=== PATIENT | male | born 1970 | race Caucasian/White ===

== ENCOUNTER 2024-07-21 10:44 | Observation (INO) | payer BC ==
--- OUTSIDE RECORDS SUMMARY | 2024-07-21 10:49 | XMS REPORT | Continuity of Care Document ---
Author Name Unknown Address [address] [facility] [address] [place] [address] [facility] [place] Address [address] [facility] [address] [place] [address] Care Team Providers Care Network Analyst Name Role Phone Axel Boudreaux Attending Clinician Unavailable Ayana Blackmon Attending Clinician Unavailable Bethany Attending Clinician Unavailable MIKAYLA Attending Clinician Unavailable Maggy Damon Attending Clinician [phone] Minerva García Attending Clinician [phone] LINDA CHAPA Attending Clinician Unavailable Michaela_Nelson Admitting Clinician Unavailable MIKAYLA Admitting Clinician Unavailable LINDA CHAPA Admitting Clinician Unavailable Payers Payer Name Policy Type Policy Number Effective Date Expirati on Date Source [place] [id number] 2016 00:00:00 [facility] [place] [id number] 2016 00:00:00 Problems Condition Name Condition Details Condition Category Status Onset Date Resolution Date Last Treatment Date Treating Clinician Comments Source Type 2 diabetes mellitus Type 2 Diabetes Mellitus Problem Active 12-17 00:00: 00 [facility] Obesity Obesity Problem Active 12-17 00:00: 00 [facility] Failure to lose weight Failure to Lose Weight Problem Active 12-05 00:00: 00 [facility] Pain of left elbow joint Pain of Left Elbow Joint Problem Active 12-05 00:00: 00 [facility] Hyperlipid emia Hyperlipid emia Problem Active 2020-03 00:00: 00 [facility] Gout Gout Problem Active 2020-03 00:00: 00 [facility] Essential hypertensi on Essential Hypertensi on Problem Active 2020-03 00:00: 00 [facility] [id number] S/P total left hip arthroplas ty Problem [facility] [id number] Mixed hyperlipid emia Problem Active [facility] [id number] Morbidly obese Problem Active [facility] [id number] Chronic gout of multiple sites, unspecifie d cause Problem Active [facility] [id number] Primary osteoarthr itis of left hip Problem [facility] Localized, primary osteoarthr itis of the pelvic region and thigh Unilateral primary osteoarthr itis, left hip Problem [facility] Social History Social Habit Start Date Stop Date Quantity Comments Source History of Tobacco Use [facility] Sex Assigned At [facility] Smoking Status Start Date Stop Date Source Never Smoker [facility] Medications Ordered Medication Name Filled Medication Name Start Date Stop Date Current Medication? Ordering Clinician Indication Dosage Frequency Signature (SIG) Comments Components Source Fluticasone Propionate 50 MCG/ACT Fluticasone Propionate 50 MCG/ACT No 1{spray _in_eac h_nostr il} QD Fluticason e Propionate 50 MCG/ACT Lisinopril- hydroCHLORO thiazide 10-12.5 MG Lisinopril- hydroCHLORO thiazide 10-12.5 MG No 1{table t} QD Lisinopril -hydroCHLO ROthiazide 10-12.5 MG Indomethaci n 50 MG Indomethaci n 50 MG No Indomethac in 50 MG Febuxostat 80 MG Febuxostat 80 MG No Febuxostat 80 MG Rosuvastati n Calcium 5 MG Rosuvastati n Calcium 5 MG No 1{table t} QD Rosuvastat in Calcium 5 MG allopurinol allopurinol No al lopurino l [facility] allopurinol 300 mg tablet Take 1 tablet every day by oral route for 30 days. allopurinol 300 mg tablet Take 1 tablet every day by oral route for 30 days. No 1 Q1D allopurino l 300 mg tablet Take 1 tablet every day by oral route for [address] [facility] colchicine 0.6 mg tablet Take 1 tablet every day by oral route as needed. colchicine 0.6 mg tablet Take 1 tablet every day by oral route as needed. No 1 Q1D colchicine 0.6 mg tablet Take 1 tablet every day by oral route as needed. [facility] diclofenac sodium 75 mg tablet,irwin yed release Take 1 tablet twice a day by oral route as needed. diclofenac sodium 75 mg tablet,irwin yed release Take 1 tablet twice a day by oral route as needed. No 1 BID diclofenac sodium 75 mg tablet,del ayed release Take 1 tablet twice a day by oral route as needed. [facility] fenofibrate nanocrystal lized 145 mg tablet Take 1 tablet every day by oral route for 30 days. fenofibrate nanocrystal lized 145 mg tablet Take 1 tablet every day by oral route for 30 days. No 1 Q1D fenofibrat e nanocrysta llized 145 mg tablet Take 1 tablet every day by oral route for [address] [facility] indomethaci n 50 mg capsule Take 1 capsule 3 times a day by oral route. indomethaci n 50 mg capsule Take 1 capsule 3 times a day by oral route. No 1capsul e(s) TID indomethac in 50 mg capsule Take 1 capsule 3 times a day by oral route. [facility] lisinopril 10 mg-hydrochl orothiazide 12.5 mg tablet Take 1 tablet every day by oral route for 30 days. lisinopril 10 mg-hydrochl orothiazide 12.5 mg tablet Take 1 tablet every day by oral route for 30 days. No 1 Q1D lisinopril 10 mg-hydroch lorothiazi de 12.5 mg tablet Take 1 tablet every day by oral route for [address] [facility] lisinopril 20 mg tablet Take 1 tablet every day by oral route. lisinopril 20 mg tablet Take 1 tablet every day by oral route. No 1 Q1D lisinopril 20 mg tablet Take 1 tablet every day by oral route. [facility] pravastatin 20 mg tablet Take 1 tablet every day by oral route. pravastatin 20 mg tablet Take 1 tablet every day by oral route. No 1 Q1D pravastati n 20 mg tablet Take 1 tablet every day by oral route. [facility] allopurinol 300 mg tablet Take 1 tablet twice a day by oral route for 90 days. allopurinol 300 mg tablet Take 1 tablet twice a day by oral route for 90 days. No 1 BID allopurino l 300 mg tablet Take 1 tablet twice a day by oral route for [address] [facility] colchicine 0.6 mg tablet 2 TABLETS ON DAY 1, THEN 1 TABLET DAILY colchicine 0.6 mg tablet 2 TABLETS ON DAY 1, THEN 1 TABLET DAILY No colchicine 0.6 mg tablet 2 TABLETS ON DAY 1, THEN [address] [facility] fenofibrate nanocrystal lized 145 mg tablet TAKE 1 TABLET BY MOUTH ONCE DAILY FOR 90 DAYS fenofibrate nanocrystal lized 145 mg tablet TAKE 1 TABLET BY MOUTH ONCE DAILY FOR 90 DAYS No fenofibrat e nanocrysta llized 145 mg tablet TAKE 1 TABLET BY MOUTH ONCE DAILY FOR [address] [facility] indomethaci n 50 mg capsule Take 1 capsule 3 times a day by oral route as needed. indomethaci n 50 mg capsule Take 1 capsule 3 times a day by oral route as needed. No 1capsul e(s) TID indomethac in 50 mg capsule Take 1 capsule 3 times a day by oral route as needed. [facility] lisinopril 10 mg-hydrochl orothiazide 12.5 mg tablet TAKE 1 TABLET BY MOUTH ONCE DAILY FOR 90 DAYS lisinopril 10 mg-hydrochl orothiazide 12.5 mg tablet TAKE 1 TABLET BY MOUTH ONCE DAILY FOR 90 DAYS No lisinopril 10 mg-hydroch lorothiazi de 12.5 mg tablet TAKE 1 TABLET BY MOUTH ONCE DAILY FOR [address] [facility] allopurinol allopurinol No al lopurino l [facility] allopurinol 300 mg tablet Take 1 tablet every day by oral route for 30 days. allopurinol 300 mg tablet Take 1 tablet every day by oral route for 30 days. No 1 Q1D allopurino l 300 mg tablet Take 1 tablet every day by oral route for [address] [facility] colchicine 0.6 mg tablet Take 1 tablet every day by oral route as needed. colchicine 0.6 mg tablet Take 1 tablet every day by oral route as needed. No 1 Q1D colchicine 0.6 mg tablet Take 1 tablet every day by oral route as needed. [facility] diclofenac sodium 75 mg tablet,irwin yed release Take 1 tablet twice a day by oral route as needed. diclofenac sodium 75 mg tablet,irwin yed release Take 1 tablet twice a day by oral route as needed. No 1 BID diclofenac sodium 75 mg tablet,del ayed release Take 1 tablet twice a day by oral route as needed. [facility] fenofibrate nanocrystal lized 145 mg tablet Take 1 tablet every day by oral route for 30 days. fenofibrate nanocrystal lized 145 mg tablet Take 1 tablet every day by oral route for 30 days. No 1 Q1D fenofibrat e nanocrysta llized 145 mg tablet Take 1 tablet every day by oral route for [address] [facility] indomethaci n 50 mg capsule Take 1 capsule 3 times a day by oral route. indomethaci n 50 mg capsule Take 1 capsule 3 times a day by oral route. No 1capsul e(s) TID indomethac in 50 mg capsule Take 1 capsule 3 times a day by oral route. [facility] lisinopril 10 mg-hydrochl orothiazide 12.5 mg tablet Take 1 tablet every day by oral route for 30 days. lisinopril 10 mg-hydrochl orothiazide 12.5 mg tablet Take 1 tablet every day by oral route for 30 days. No 1 Q1D lisinopril 10 mg-hydroch lorothiazi de 12.5 mg tablet Take 1 tablet every day by oral route for [address] [facility] lisinopril 20 mg tablet Take 1 tablet every day by oral route. lisinopril 20 mg tablet Take 1 tablet every day by oral route. No 1 Q1D lisinopril 20 mg tablet Take 1 tablet every day by oral route. [facility] pravastatin 20 mg tablet Take 1 tablet every day by oral route. pravastatin 20 mg tablet Take 1 tablet every day by oral route. No 1 Q1D pravastati n 20 mg tablet Take 1 tablet every day by oral route. [facility] Vital Signs Vital Name Observation Time Observation Value Comments S denisse height 2023-10-22 13:00:00 72 [in_i] Commo n [facility] weight 2023-10-22 13:00:00 304 [lb_av] Comm on [facility] temperature 2023-10-22 13:00:00 98.1 [degF] Com [facility] bmi 2023-10-22 13:00:00 41.23 kg/m2 Comm on [facility] blood pressure systolic 2023-10-22 13:00:00 130 mm[Hg] [facility] blood pressure diastolic 2023-10-22 13:00:00 62 mm[Hg] Common [facility] height 2023-10-09 08:15:00 72 [in_i] Commo n [facility] weight 2023-10-09 08:15:00 304.3 [lb_av] Co mmon [facility] temperature 2023-10-09 08:15:00 97.8 [degF] Com [facility] bmi 2023-10-09 08:15:00 41.27 kg/m2 Comm on [facility] blood pressure systolic 2023-10-09 08:15:00 134 mm[Hg] Common [facility] blood pressure diastolic 2023-10-09 08:15:00 60 mm[Hg] Common Spiri t [facility] height 2023-09-07 08:00:00 72 [in_i] Commo n [facility] weight 2023-09-07 08:00:00 304.1 [lb_av] Co mmon [facility] temperature 2023-09-07 08:00:00 97.5 [degF] Com mon [facility] bmi 2023-09-07 08:00:00 41.24 kg/m2 Comm on [facility] blood pressure systolic 2023-09-07 08:00:00 130 mm[Hg] Common [facility] blood pressure diastolic 2023-09-07 08:00:00 78 mm[Hg] Common [facility] temperature 2023-07-23 08:00:00 98.0 [degF] Com mon [facility] bmi 2023-07-23 08:00:00 41.23 kg/m2 Comm on [facility] blood pressure systolic 2023-07-23 08:00:00 124 mm[Hg] Common [facility] blood pressure diastolic 2023-07-23 08:00:00 78 mm[Hg] Common [facility] height 2023-07-23 08:00:00 72 [in_i] Commo n [facility] weight 2023-07-23 08:00:00 304 [lb_av] Comm on [facility] height 2023-06-22 13:30:00 72 [in_i] Commo n [facility] weight 2023-06-22 13:30:00 304 [lb_av] Comm on [facility] bmi 2023-06-22 13:30:00 41.23 kg/m2 Comm on [facility] blood pressure systolic 2023-06-22 13:30:00 129 mm[Hg] [facility] blood pressure diastolic 2023-06-22 13:30:00 74 mm[Hg] [facility] height 2023-06-17 08:30:00 72 [in_i] Commo n [facility] weight 2023-06-17 08:30:00 304 [lb_av] Comm on [facility] temperature 2023-06-17 08:30:00 98.5 [degF] Com mon [facility] bmi 2023-06-17 08:30:00 41.23 kg/m2 Comm on [facility] blood pressure systolic 2023-06-17 08:30:00 126 mm[Hg] Common [facility] blood pressure diastolic 2023-06-17 08:30:00 80 mm[Hg] [facility] BP Diastolic 2021-12-17 00:00:00 68 mm[Hg] [facility] Height 2021-12-17 00:00:00 72 [in_i] [facility] BP Systolic 2021-12-17 00:00:00 137 mm[Hg] [facility] Body Weight 2021-12-17 00:00:00 5283.2 [oz_av] [facility] BP Diastolic 2021-12-05 00:00:00 74 mm[Hg] [facility] Height 2021-12-05 00:00:00 72 [in_i] [facility] BMI (Body Mass Index) 2021-12-05 00:00:00 45.7 kg/m2 [facility] BP Systolic 2021-12-05 00:00:00 161 mm[Hg] [facility] Body Weight 2021-12-05 00:00:00 5385.6 [oz_av] [facility] BP Diastolic 2021-05-28 00:00:00 64 mm[Hg] [facility] Height 2021-05-28 00:00:00 72 [in_i] [facility] BMI (Body Mass Index) 2021-05-28 00:00:00 45.1 kg/m2 [facility] BP Systolic 2021-05-28 00:00:00 143 mm[Hg] [facility] Body Weight 2021-05-28 00:00:00 5321.6 [oz_av] [facility] Height 2021-02-22 00:00:00 72 [in_i] [facility] BP Diastolic 2021-01-21 00:00:00 81 mm[Hg] [facility] Height 2021-01-21 00:00:00 72 [in_i] [facility] BMI (Body Mass Index) 2021-01-21 00:00:00 45.2 kg/m2 [facility] BP Systolic 2021-01-21 00:00:00 178 mm[Hg] [facility] Body Weight 2021-01-21 00:00:00 5330 [oz_av] [facility] height 2020-10-30 15:00:00 60.5 [in_i] Comm on [facility] weight 2020-10-30 15:00:00 328.8 [lb_av] Co mmon [facility] temperature 2020-10-30 15:00:00 97.7 [degF] Com mon [facility] bmi 2020-10-30 15:00:00 63.15 kg/m2 Comm on [facility] oximetry 2020-10-30 15:00:00 96 % Commo n [facility] respiratory rate 2020-10-30 15:00:00 18 /min Common [facility] blood pressure systolic 2020-10-30 15:00:00 130 mm[Hg] Common [facility] blood pressure diastolic 2020-10-30 15:00:00 72 mm[Hg] Common [facility] height 2020-10-12 14:00:00 60.5 [in_i] Comm on [facility] weight 2020-10-12 14:00:00 337 [lb_av] Comm on [facility] temperature 2020-10-12 14:00:00 97.8 [degF] Com mon [facility] bmi 2020-10-12 14:00:00 64.73 kg/m2 Comm on [facility] oximetry 2020-10-12 14:00:00 98 % Commo n [facility] respiratory rate 2020-10-12 14:00:00 16 /min Common [facility] blood pressure systolic 2020-10-12 14:00:00 163 mm[Hg] Common [facility] blood pressure diastolic 2020-10-12 14:00:00 78 mm[Hg] [facility] Procedures Procedure Date / Time Performed Performing Clinicia n Source Procedure on Foot 2016-03-23 00:00:00 [facility] Procedure on Shoulder [facility] Plan of Care Planned Activity Planned Date Details Comments Source Diagnostic Test Pending 2021-05-28 00:00:00 CBC w/ auto diff [code = CBC w/ auto diff] [facility] Diagnostic Test Pending 2021-05-28 00:00:00 thyroid peroxidase (tpo) Ab, serum [code = thyroid peroxidase (tpo) Ab, serum] [facility] Diagnostic Test Pending 2021-05-28 00:00:00 CMP, serum or plasma [code = CMP, serum or plasma] [facility] Diagnostic Test Pending 2021-05-28 00:00:00 TSH + free T4, serum [code = TSH + free T4, serum] [facility] Diagnostic Test Pending 2021-05-28 00:00:00 vitamin D, 25-hydroxy, total, serum [code = vitamin D, 25-hydroxy, total, serum] [facility] Diagnostic Test Pending 2021-05-28 00:00:00 testosterone, total, serum [code = testosterone, total, serum] [facility] Diagnostic Test Pending 2021-05-28 00:00:00 lipids, total, serum [code = lipids, total, serum] [facility] Diagnostic Test Pending 2021-05-28 00:00:00 insulin, serum [code = insulin, serum] [facility] Instructions [facility] Encounters Start Date/Time End Date/Time Encounter Type Admission Type Attending [facility] Care Facility Care Department Encounter ID Source 2023-10-13 07:02:00 Outpatient STLMLC STL[facility]C [id number] [facility] 2023-10-05 15:11:00 Outpatient STLMLC STLMLC [id number] [facility] 2023-09-22 13:04:00 Outpatient STLMLC STLMLC [id number] [facility] 2023-09-08 08:17:00 Outpatient STLMLC STLMLC [id number] [facility] 2023-08-10 09:15:00 Outpatient STLMLC STLMLC [id number] [facility] 2023-06-23 11:35:00 Outpatient STLMLC STLMLC [id number] [facility] 2023-06-17 16:03:00 Outpatient STLMLC STLMLC [id number] [facility] 2021-04-17 13:40:56 Outpatient STLMLC STLMLC [id number] [facility] 2021-04-17 13:36:45 Outpatient Janusz Axel STLMLC STLMLC [id number] [facility] 2021-04-17 13:29:54 Outpatient Blackmon, Imernee STLMLC STLMLC [id number] [facility] 2023-10-22 00:00:00 2023-10-22 00:00:00 (PO) Post Op STLMLC STLMLC [id number] [facility] 2023-10-09 00:00:00 2023-10-09 00:00:00 (PO) Post Op STLMLC STLMLC [id number] [facility] 2023-09-07 00:00:00 2023-09-07 00:00:00 (PO) Post Op STLMLC STLMLC [id number] [facility] 2023-08-26 00:00:00 2023-08-26 00:00:00 (TEL) STLMLC STLMLC [id number] [facility] 2023-08-19 00:00:00 2023-08-19 00:00:00 (TEL) STLMLC STLMLC [id number] [facility] 2023-08-10 00:00:00 2023-08-10 00:00:00 (TEL) STLMLC STLMLC [id number] [facility] 2023-08-07 00:00:00 2023-08-07 00:00:00 (TEL) STLMLC STLMLC [id number] [facility] 2023-08-07 00:00:00 2023-08-07 00:00:00 (TEL) STLMLC STLMLC [id number] [facility] 2023-07-23 00:00:00 2023-07-23 00:00:00 (TEL) STLMLC STLMLC [id number] [facility] 2023-07-23 00:00:00 2023-07-23 00:00:00 (F/U) Follow Up Visit STLMLC STLMLC [id number] [facility] 2023-07-16 00:00:00 2023-07-16 00:00:00 (TEL) STLMLC STLMLC [id number] [facility] 2023-06-22 00:00:00 2023-06-22 00:00:00 (F/U) Follow Up Visit STLMLC STLMLC [id number] [facility] 2023-06-17 00:00:00 2023-06-17 00:00:00 OFFICE VISIT NEW PT LEVEL 4 STLMLC STLMLC [id number] [facility] 2022-06-10 00:00:00 2022-06-10 00:00:00 Outpatient L[facility] [id number] [facility] 2022-05-06 00:00:00 2022-05-06 00:00:00 Outpatient L[facility] [id number] [facility] 2022-04-02 00:00:00 2022-04-02 00:00:00 Outpatient [facility] [id number] [facility] 2021-12-17 00:00:00 2021-12-17 00:00:00 Outpatient [facility] [id number] [facility] 2021-12-17 00:00:00 2021-12-17 00:00:00 Maggy Damon APRN, MSN, [facility]-: [address] [place] [address], [address] [address] , Ph. [facility] [id number] [facility] 2021-12-12 00:00:00 2021-12-12 00:00:00 Outpatient L_[facility]ena [facility] [id number] [facility] 2021-12-05 00:00:00 2021-12-05 00:00:00 Outpatient [facility] [id number] [facility] 2021-12-05 00:00:00 2021-12-05 00:00:00 Outpatient DamonMaggy [facility] [id number] 2021-12-05 00:00:00 2021-12-05 00:00:00 Maggy Damon APRN, MSN, [facility]-: [address] [place] [address], [address] [address] , Ph. [facility] [id number] [facility] 2021-11-24 00:00:00 2021-11-24 00:00:00 Outpatient [facility] [id number] [facility] 2021-08-29 02:35:00 2021-08-29 02:35:00 Outpatient [facility] [id number] [facility] 2021-08-28 04:22:00 2021-08-28 04:22:00 Outpatient [facility] [id number] [facility] 2021-08-08 01:03:00 2021-08-08 01:03:00 Outpatient [facility] [id number] [facility] 2021-07-03 04:53:00 2021-07-03 04:53:00 Outpatient [facility] [id number] [facility] 2021-05-28 05:40:00 2021-05-28 05:40:00 Outpatient [facility] [id number] [facility] 2021-05-28 00:00:00 2021-05-28 00:00:00 Minerva JORDIN García-FILE SYSTEM INSTALLER-C: [address] [place] [address], [address] [address] , Ph. [facility] [id number] [facility] 2021-05-28 00:00:00 2021-05-28 00:00:00 Outpatient Minerva García [facility] [id number] [facility] 2021-03-11 10:25:00 2021-03-11 10:25:00 Outpatient [facility] [id number] [facility] 2021-02-22 01:06:00 2021-02-22 01:06:00 Outpatient [facility] [id number] [facility] 2021-02-22 00:00:00 2021-02-22 00:00:00 Minerva GarcíaPANKAJFILE SYSTEM INSTALLER-C: [address] [place] [address], [address] [address] , Ph. [facility] [id number] [facility] 2021-02-22 00:00:00 2021-02-22 00:00:00 Outpatient Minerva García [facility] [id number] 2021-01-21 03:25:00 2021-01-21 03:25:00 Outpatient [facility] [id number] [facility] 2021-01-21 00:00:00 2021-01-21 00:00:00 Outpatient Minerva García [facility] [id number] 2021-01-21 00:00:00 2021-01-21 00:00:00 Outpatient Minerva García [facility] [id number] 2021-01-21 00:00:00 2021-01-21 00:00:00 Minerva PANKAJ GarcíaFILE SYSTEM INSTALLERSaranC: 9 [facility], [address] [place] [id number] , Ph. [facility] [id number] [facility] 2021-01-15 12:14:00 2021-01-15 12:14:00 Outpatient [facility] [id number] 2020-11-09 00:00:00 2020-11-09 00:00:00 [facility] [id number] [facility] 2020-10-30 00:00:00 2020-10-30 00:00:00 OFFICE VISIT ESTAB PT LEVEL 4 STLMLC STLC [id number] Common [facility] 2020-10-12 00:00:00 2020-10-12 00:00:00 OFFICE VISIT NEW PT LEVEL 4 STLMLC STLMLC [id number] Common [facility] Results Test Description Test Time Test Comments Results Result Co mments Source [facility] W Auto Differential panel - [id number] 00:00:00* Test Item Value Reference Range Interpretation Comme nts Leukocytes [#/volume] in Blo od by Automated count (test code = 6690-2) 9.0 x10e3/uL 3.4-10.8 Erythrocytes [#/volume] in Blood by Automated count (test code = 789-8) 4.84 x10e6/uL 4.14-5.80 Hemoglobin [Mass/volume] in Blood (test code = 718-7) 14.3 g/dL 13.0-17.7 Hematocrit [Volume Fraction] of Blood by Automated count (test code = 4544-3) 43.0 % 37.5-51.0 Erythrocyte mean corpuscular volume [Entitic volume] by Automated count (test code = 787-2) 89 fL 79-97 MCH [Entitic mass] by Automa obed count (test code = 785-6) 29.5 pg 26.6-33.0 Erythrocyte mean corpuscular hemoglobin concentration [Mass/volume] by Automated count (test code = 786-4) 33.3 g/dL 31.5-35.7 Erythrocyte distribution wid th [Ratio] by Automated count (test code = 788-0) 12.6 % 11.6-15.4 Platelets [#/volume] in Bloo d by Automated count (test code = 777-3) 249 x10e3/uL 150-450 Neutrophils/100 leukocytes i n Blood by Automated count (test code = 770-8) 60 % not estab. Lymphocytes/100 leukocytes i n Blood by Automated count (test code = 736-9) 27 % not estab. Monocytes/100 leukocytes in Blood by Automated count (test code = 5905-5) 7 % not estab. Eosinophils/100 leukocytes i n Blood by Automated count (test code = 713-8) 5 % not estab. Basophils/100 leukocytes in Blood by Automated count (test code = 706-2) 1 % not estab. immature cells (test code = immature cells) registry np Neutrophils [#/volume] in Bl ood by Automated count (test code = 751-8) 5.3 x10e3/uL 1.4-7.0 Lymphocytes [#/volume] in Bl ood by Automated count (test code = 731-0) 2.4 x10e3/uL 0.7-3.1 Monocytes [#/volume] in Bloo d by Automated count (test code = 742-7) 0.7 x10e3/uL 0.1-0.9 Eosinophils [#/volume] in Bl ood by Automated count (test code = 711-2) 0.5 x10e3/uL 0.0-0.4 H Basophils [#/volume] in Bloo d by Automated count (test code = 704-7) 0.1 x10e3/uL 0.0-0.2 Immature granulocytes/100 leukocytes in Blood by Automated count (test code = 11816-0) 0 % not estab. Immature granulocytes [#/volume] in Blood by Automated count (test code = 94532-8) 0.0 x10e3/uL 0.0-0.1 Nucleated erythrocytes/100 leukocytes [Ratio] in Blood by Automated count (test code = 34414-2) registry np Morphology [Interpretation] in Blood Narrative (test code = 66620-4) registry np [facility] - Serum or [id number] 00:00:00* Test Item Value Reference Range Interpretation Comme nts Glucose [Mass/volume] in Ser um or Plasma (test code = 2345-7) 128 mg/dL 65-99 H Urea nitrogen [Mass/volume] in Serum or Plasma (test code = 3094-0) 15 mg/dL 6-24 Creatinine [Mass/volume] in Serum or Plasma (test code = 2160-0) 1.10 mg/dL 0.76-1.27 eGFR (test code = eGFR) 82 mL/min/1.73 >59 Urea nitrogen/Creatinine [Ma ss Ratio] in Serum or Plasma (test code = 3097-3) 14 9-20 Sodium [Moles/volume] in Ser um or Plasma (test code = 2951-2) 142 mmol/L 134-144 Potassium [Moles/volume] in Serum or Plasma (test code = 2823-3) 4.4 mmol/L 3.5-5.2 Chloride [Moles/volume] in Serum or Plasma (test code = 2075-0) 107 mmol/L 96-106 H Carbon dioxide, total [Moles/volume] in Serum or Plasma (test code = 2027-9) 20 mmol/L 20-29 Calcium [Mass/volume] in Ser um or Plasma (test code = 74916-4) 9.1 mg/dL 8.7-10.2 Protein [Mass/volume] in Ser um or Plasma (test code = 2885-2) 6.8 g/dL 6.0-8.5 Albumin [Mass/volume] in Ser um or Plasma (test code = 1751-7) 4.3 g/dL 4.0-5.0 Globulin [Mass/volume] in Serum by calculation (test code = 25267-5) 2.5 g/dL 1.5-4.5 Albumin/Globulin [Mass Ratio ] in Serum or Plasma (test code = 1759-0) 1.7 1.2-2.2 Bilirubin.total [Mass/volume ] in Serum or Plasma (test code = 1974-) 0.5 mg/dL 0.0-1.2 Alkaline phosphatase [Enzymatic activity/volume] in Serum or Plasma (test code = 6768-6) 69 IU/L 44-121 Aspartate aminotransferase [Enzymatic activity/volume] in Serum or Plasma (test code = 192-8) 23 IU/L 0-40 Alanine aminotransferase [Enzymatic activity/volume] in Serum or Plasma (test code = 1742-6) 20 IU/L 0-44 [facility] 1996 panel - Serum or [id number] 00:00:00* Test Item Value Reference Range Interpretation Comme nts Cholesterol [Mass/volume] in Serum or Plasma (test code = 2093-3) 199 mg/dL 100-199 Triglyceride [Mass/volume] i n Serum or Plasma (test code = 2571-8) 124 mg/dL 0-149 Cholesterol in HDL [Mass/vol ume] in Serum or Plasma (test code = 2085-9) 41 mg/dL >39 Cholesterol in VLDL [Mass/vo lume] in Serum or Plasma by calculation (test code = 02084-9) 22 mg/dL 5-40 Cholesterol in LDL [Mass/vol ume] in Serum or Plasma by calculation (test code = 64109-0) 136 mg/dL 0-99 H Laboratory comment [Text] in Report Narrative (test code = 33771-4) registry np Cholesterol in LDL/Cholester ol in HDL [Mass Ratio] in Serum or Plasma (test code = 68622-9) 3.3 ratio 0.0-3.6 [facility] CenterHemoglobin A1c/Hemoglobin.total in Blood 2021-12-13 00:00:00* Test Item Value Reference Range Interpretation Comme nts Hemoglobin A1c/Hemoglobin.to shaista in Blood (test code = 4548-4) 6.4 % 4.8-5.6 H [facility] [Mass/volume] in Serum or Plasma 2021-12-13 00:00:00* Test Item Value Reference Range Interpretation Comme nts Testosterone [Mass/volume] i n Serum or Plasma (test code = 2986-8) 225 NG/dL 264-916 L [facility] ClinicsProstate specific Ag [Mass/volume] in Serum or [id number] 00:00:00* Test Item Value Reference Range Interpretation Comme nts Prostate specific Ag [Mass/v olume] in Serum or Plasma (test code = 2857-1) 0.9 NG/mL 0.0-4.0 [facility] ClinicsUrate [Mass/volume] in Serum or Plasma 2021-12-13 00:00:00* Test Item Value Reference Range Interpretation Comme nts Urate [Mass/volume] in Serum or Plasma (test code = 3084-1) 8.9 mg/dL 3.8-8.4 H [facility] ClinicsCULTURE, [id number] 08:56:00LEFT FOOT WOUND CULTURESpecimen: Foot LeftCollected: 10/11/2016 09:19 Status: Final Last Updated: 10/17/2016 08:56 (1) LEFT FOOT WOUND CULTURE Culture Result (Final) (Final) No [facility] IslandVANCOMYCIN, Trough 2016-10-14 23:58:00* Test Item Value Reference Range Interpretation Comme nts Vancomycin, Trough (test code = VANCT) 13.9 ug/ml 15.0-20.0 L 10/12/2008 Change in Therapeutic Range, for Trough Level, has been implemented per P&T committee. INTERPRETATION GUIDE: CONSIDER SENSITIVITY REPORT IF TOMAS IS = 1 THERAPEUTIC RANGE IS 15-20 ug/ml IF TOMAS IS > OR = [address] [facility] THERAPY [facility], [id number] 14:14:00Specimen: BloodCollected: 10/09/2016 13:45 Status: Final Last Updated: 10/14/2016 14:13 Culture Result (Final) (Final) No Growth [facility] 5 [facility], [id number] 14:14:00Specimen: BloodCollected: 10/09/2016 13:35 Status: Final Last Updated: 10/14/2016 14:13 Culture Result (Final) (Final) No Growth After 5 DaysAsp[facility]-Bainbridge IslandVANCOMYCIN, [id number] 13:34:00* Test Item Value Reference Range Interpretation Comme nts Vancomycin, Trough (test code = VANCT) 11.2 ug/ml 15.0-20.0 L 10/12/2008 Change in Therapeutic Range, for Trough Level, has been implemented per P&T committee. INTERPRETATION GUIDE: CONSIDER SENSITIVITY REPORT IF TOMAS IS = 1 THERAPEUTIC RANGE IS 15-20 ug/ml IF TOMAS IS > OR = [address] [facility] THERAPY [facility], [id number] 11:18:00LEFT FOOT WOUND CULTURESpecimen: Foot LeftCollected: 10/11/2016 09:18 Status: Final Last Updated: 10/13/2016 11:18 (1) LEFT FOOT WOUND CULTURE Culture Result (Final) (Final) Many Staphylococcus aureus Isolate (Final) (C) (Final) Methicillin Resistant Staphylococcus aureus Ciprofloxacin >=8 R Clindamycin 0.25 S Er ythromycin >=8 R Gentamicin <=0.5 S Levofloxacin 4 I Linezolid 2 S Moxifloxacin 2 S Oxacillin>=4 R Rifampicin <=0.5 S Tetracycline <=1 S Tigecycline <=0.12 S Trimeth/Sulfa <=10S Vancomycin 1 S Cefoxitin Sc (+/-) Positive + D Test (+/-) Negative -[facility] HospitalBETTYE Mendez2017-07-24 11:18:00 Specimen: Foot LeftCollected: 10/11/2016 04:59 Status: Final Last Updated: 10/13/2016 11:18 CultureResult (Final) (Final) Many Staphylococcus aureus Isolate (Final) (C) (Final) Methicillin Resistant Staphylococcus aureus Ciprofloxacin >=8 R Clindamycin 0.25 S Erythromycin >=8 R Gentamicin <=0.5 S Levofloxacin 4 I Linezolid 2 S Moxifloxacin 2 S Oxacillin >=4 R Rifampicin <=0.5 S Tetracycline <=1 S Tigecycline <=0.12 S Trimeth/Sulfa <=10 S Vancomycin 1 S CefoxitinSc (+/-) Positive + D Test (+/-) Negative -[facility]-[id number] 07:12:00* Test Item Value Reference Range Interpretation Comme nts Glucose (test code = GLU) 106 mg/dl 75-110 BUN (test code = BUN) 12.0 mg/dl 6.0-17.0 Creatinine (test code = CREA) 0.9 mg/dl 0.4-1.2 Sodium (test code = NA) 141 mmol/l 137-145 Potassium (test code = K) 4.1 mmol/l 3.5-5.0 Chloride (test code = CL) 105 mmol/l 98-107 CO2 (test code = CO2) 28 mmol/l 22-30 Calcium (test code = CALC) 9.0 mg/dl 8.4-10.2 T Protein (test code = TP) 7.7 gm/dl 5.1-8.7 Albumin (test code = ALB) 3.4 gm/dl 3.5-4.6 L A/G Ratio (test code = AGRAT) 0.8 % 1.1-2.2 L AST (SGOT) (test code = AST) 35 U/L 11-36 ALT (SGPT) (test code = ALT) 34 U/L 11-40 Alkaline Phos (test code = ALKP) 95 U/L 47-114 Total Bilirubin (test code = TBIL) 1.0 mg/dl 0.2-1.2 Globulin (test code = GLOBU) 4.3 gm/dl 2.3-3.5 H Calcium, Corrected (test code = CALCCORR) 9.5 mg/dl 8.4-10.2 Various formulas exist for corrected serum calcium results, each yielding different values. This corrected result was based on the formula: Corrected Calcium = SerumCalcium + [0.8 * ( 4 - SerumAlbumin)] EGFR if (test code = EGFRAA) >60 mL/min/1.73m\ S\2 EGFR if Non- (test code = EGFRNA) >60 mL/min/1.73m\ S\2 Estimated Glomerular Filtration Rate (eGFR) Reference Intervals Decision Points for 18 years and older and average body mass: >= 60 Does not exclude kidney disease. 30 - 59 Suggests moderate chronic kidney disease and indicates the need for further investigation including assessment of proteinuria and cardiovascular factors. < 30 Usually indicates a need for referral for assessment and management of chronic kidney failure. [facility]kinCB WITH AUTO [id number] 05:43:00* Test Item Value Reference Range Interpretation Comme nts WBC (test code = WBC) 17.8 k/ul 4.8-10.8 H RBC (test code = RBC) 4.56 Millions/ul 4.70-6.10 L Hemoglobin (test code = HGB) 13.2 gm/dl 14.0-18.0 L Hematocrit (test code = HCT) 39.0 % 42.0-50.0 L MCV (test code = MCV) 85.5 fL 80.0-94.0 MCH (test code = MCH) 28.9 pg 27.0-31.0 MCHC (test code = MCHC) 33.8 gm/dl 33.0-37.0 RDW (test code = RDWVC) 13.0 % 11.5-14.5 Platelet (test code = PLT) 205 10\S\3/ul 130-400 MPV (test code = MPV) 9.1 fL 7.4-10.4 NE% (test code = NE) 82.2 % 42.0-75.0 H LY% (test code = LY) 7.9 % 13.0-42.0 L MO% (test code = MO) 4.9 % 4.0-14.0 EO% (test code = EO) 4.8 % 1.0-3.0 H BA% (test code = BA) 0.2 % 1.0-3.0 L NRBC, Auto (test code = NRBC_AUTO) 0 CBC AUTO diffOsceola Ladd Memorial Medical CenterYCIN, [id number] 12:44:00 * Test Item Value Reference Range Interpretation Comme nts Vancomycin, Trough (test code = VANCT) 10.5 ug/ml 15.0-20.0 L 10/12/2008 Change in Therapeutic Range, for Trough Level, has been implemented per P&T committee. INTERPRETATION GUIDE: CONSIDER SENSITIVITY REPORT IF TOMAS IS = 1 THERAPEUTIC RANGE IS 15-20 ug/ml IF TOMAS IS > OR = 2 CONSIDER ALTERNATE THERAPY 1 hour PRIOR to the morning/early afternoon dose on 10/12/16.[facility] CenterYCIN, [id number] 00:44:00* Test Item Value Reference Range Interpretation Comme nts Vancomycin, Trough (test code = VANCT) 6.1 ug/ml 15.0-20.0 L 10/12/2008 Change in Therapeutic Range, for Trough Level, has been implemented per P&T committee. INTERPRETATION GUIDE: CONSIDER SENSITIVITY REPORT IF TOMAS IS = 1 THERAPEUTIC RANGE IS 15-20 ug/ml IF TOMAS IS > OR = 2 CONSIDER ALTERNATE THERAPY [facility] WITH AUTO [id number] 06:48:00* Test Item Value Reference Range Interpretation Comme nts WBC (test code = WBC) 23.2 k/ul 4.8-10.8 H RBC (test code = RBC) 4.63 Millions/ul 4.70-6.10 L Hemoglobin (test code = HGB) 13.8 gm/dl 14.0-18.0 L Hematocrit (test code = HCT) 40.3 % 42.0-50.0 L MCV (test code = MCV) 86.9 fL 80.0-94.0 MCH (test code = MCH) 29.7 pg 27.0-31.0 MCHC (test code = MCHC) 34.2 gm/dl 33.0-37.0 RDW (test code = RDWVC) 13.1 % 11.5-14.5 Platelet (test code = PLT) 279 10\S\3/ul 130-400 MPV (test code = MPV) 8.8 fL 7.4-10.4 NE% (test code = NE) 78.6 % 42.0-75.0 H LY% (test code = LY) 13.1 % 13.0-42.0 MO% (test code = MO) 5.4 % 4.0-14.0 EO% (test code = EO) 2.5 % 1.0-3.0 BA% (test code = BA) 0.4 % 1.0-3.0 L NRBC, Auto (test code = NRBC_AUTO) 0 [facility]-[id number] 06:31:00* Test Item Value Reference Range Interpretation Comme nts Glucose (test code = GLU) 119 mg/dl 75-110 H BUN (test code = BUN) 13.0 mg/dl 6.0-17.0 Creatinine (test code = CREA) 0.9 mg/dl 0.4-1.2 Sodium (test code = NA) 142 mmol/l 137-145 Potassium (test code = K) 4.0 mmol/l 3.5-5.0 Chloride (test code = CL) 104 mmol/l 98-107 CO2 (test code = CO2) 26 mmol/l 22-30 Calcium (test code = CALC) 9.2 mg/dl 8.4-10.2 T Protein (test code = TP) 7.6 gm/dl 5.1-8.7 Albumin (test code = ALB) 3.7 gm/dl 3.5-4.6 A/G Ratio (test code = AGRAT) 0.9 % 1.1-2.2 L AST (SGOT) (test code = AST) 21 U/L 11-36 ALT (SGPT) (test code = ALT) 44 U/L 11-40 H Alkaline Phos (test code = ALKP) 104 U/L 47-114 Total Bilirubin (test code = TBIL) 1.2 mg/dl 0.2-1.2 Globulin (test code = GLOBU) 3.9 gm/dl 2.3-3.5 H Calcium, Corrected (test code = CALCCORR) 9.4 mg/dl 8.4-10.2 Various formulas exist for corrected serum calcium results, each yielding different values. This corrected result was based on the formula: Corrected Calcium = SerumCalcium + [0.8 * ( 4 - SerumAlbumin)] EGFR if (test code = EGFRAA) >60 mL/min/1.73m\ S\2 EGFR if Non- (test code = EGFRNA) >60 mL/min/1.73m\ S\2 Estimated Glomerular Filtration Rate (eGFR) Reference Intervals Decision Points for 18 years and older and average body mass: >= 60 Does not exclude kidney disease. 30 - 59 Suggests moderate chronic kidney disease and indicates the need for further investigation including assessment of proteinuria and cardiovascular factors. < 30 Usually indicates a need for referral for assessment and management of chronic kidney failure. [facility] HospitalMbeadb-[id number] 06:31:00* Test Item Value Reference Range Interpretation Comme nts Magnesium (test code = MG) 2.1 mg/dl 1.6-2.3 [facility] CenterkinGLYCOSALATED [id number] 14:41:00* Test Item Value Reference Range Interpretation Comme nts Hemoglobin A1C (test code = GLYCO) 6.20 % 4.3-6.0 A Mean Plasma Glucose (test code = MPG) 143 mg/dl 90-180 WHEN TEST RESU LTS FOR A1C EXCEED 14.0, THE LINEAR LIMIT OF THE INSTRUMENT, THE CALCULATED RESULT FOR THE MEAN GLUCOSE IS NOT RELIABLE. [facility]-LufkinPT AND [id number] 14:20:00* Test Item Value Reference Range Interpretation Comme nts Protime (test code = PT) 11.3 seconds 9.0-11.9 INR (test code = INR) 1.1 0.9-1.1 INR results are intended ONLY to monitor Oral Anticoagulant therapy in stablized patients. The INR Therapeutic Range is 2.0 - 3.0 Patients with a mechanical heart, the INR Range is 2.5 - 3.5 [facility]inCMP2017-07-20 14:06:00* Test Item Value Reference Range Interpretation Comme nts Glucose (test code = GLU) 89 mg/dl 75-110 BUN (test code = BUN) 18.0 mg/dl 6.0-17.0 H Creatinine (test code = CREA) 0.9 mg/dl 0.4-1.2 Sodium (test code = NA) 141 mmol/l 137-145 Potassium (test code = K) 3.8 mmol/l 3.5-5.0 Chloride (test code = CL) 101 mmol/l 98-107 CO2 (test code = CO2) 27 mmol/l 22-30 Calcium (test code = CALC) 9.7 mg/dl 8.4-10.2 T Protein (test code = TP) 8.4 gm/dl 5.1-8.7 Albumin (test code = ALB) 4.1 gm/dl 3.5-4.6 A/G Ratio (test code = AGRAT) 1.0 % 1.1-2.2 L AST (SGOT) (test code = AST) 22 U/L 11-36 ALT (SGPT) (test code = ALT) 36 U/L 11-40 Alkaline Phos (test code = ALKP) 122 U/L 47-114 H Total Bilirubin (test code = TBIL) 0.7 mg/dl 0.2-1.2 Globulin (test code = GLOBU) 4.3 gm/dl 2.3-3.5 H Calcium, Corrected (test code = CALCCORR) 9.6 mg/dl 8.4-10.2 Various formulas exist for corrected serum calcium results, each yielding different values. This corrected result was based on the formula: Corrected Calcium = SerumCalcium + [0.8 * ( 4 - SerumAlbumin)] EGFR if (test code = EGFRAA) >60 mL/min/1.73m\ S\2 EGFR if Non- (test code = EGFRNA) >60 mL/min/1.73m\ S\2 Estimated Glomerular Filtration Rate (eGFR) Reference Intervals Decision Points for 18 years and older and average body mass: >= 60 Does not exclude kidney disease. 30 - 59 Suggests moderate chronic kidney disease and indicates the need for further investigation including assessment of proteinuria and cardiovascular factors. < 30 Usually indicates a need for referral for assessment and management of chronic kidney failure. [facility]SA[facility] WITH AUTO [id number] 13:55:00* Test Item Value Reference Range Interpretation Comme nts WBC (test code = WBC) 28.3 k/ul 4.8-10.8 H RBC (test code = RBC) 5.24 Millions/ul 4.70-6.10 Hemoglobin (test code = HGB) 15.0 gm/dl 14.0-18.0 Hematocrit (test code = HCT) 44.9 % 42.0-50.0 MCV (test code = MCV) 85.8 fL 80.0-94.0 MCH (test code = MCH) 28.6 pg 27.0-31.0 MCHC (test code = MCHC) 33.3 gm/dl 33.0-37.0 RDW (test code = RDWVC) 13.3 % 11.5-14.5 Platelet (test code = PLT) 319 10\S\3/ul 130-400 MPV (test code = MPV) 8.6 fL 7.4-10.4 NE% (test code = NE) 85.9 % 42.0-75.0 H LY% (test code = LY) 9.5 % 13.0-42.0 L MO% (test code = MO) 2.7 % 4.0-14.0 L EO% (test code = EO) 1.6 % 1.0-3.0 BA% (test code = BA) 0.3 % 1.0-3.0 L NRBC, Auto (test code = NRBC_AUTO) 0 Neutrophils (test code = NEUTR) 78 % 42-75 H The value no elli ue originally released by on ############### was changed to 78 by [id number] on 10/09/2016 13:55 Bands (test code = BANDM) 10 % 0-2 H The value no elli ue originally released by on ############### was changed to 10 by [id number] on 10/09/2016 13:55 Lymphocytes (test code = LYMPH) 9 % 13-42 L The value no elli ue originally released by on ############### was changed to 9 by [id number] on 10/09/2016 13:55 Monocytes (test code = MONOS) 3 % 4-14 L The value no elli ue originally released by on ############### was changed to 3 by [id number] on 10/09/2016 13:55 [facility]
[2024-07-21] MEDS ORDERED: NA CHLORIDE 0.9% 1,000 ML ONE (11:09)
[2024-07-21 11:21] LABS: Absolute Basophils 0.1 K/uL (0-0.5); Absolute Eosinophils 0.4 K/uL (0-0.5); Absolute Lymphocytes (CBC) 3.7 K/uL (0.7-4.9); Absolute Monocytes 0.8 K/uL (0.1-1.3); Absolute Neutrophil 6.1 K/uL (1.8-8.0); Basophils % 1.1 % (0-1.3); Eosinophils % 3.7 % (0-4.4); Hematocrit 48.1 % (39.6-49.0); Hemoglobin 16.7 g/dL (13.6-17.9); Lymphocytes % 33.6 % (15.3-44.8); MCH 30.1 pg (27.0-35.0); MCHC 34.8 g/dL (32.0-36.0); MCV 86.6 fL (80-100); MPV 9.3 fL (7.6-11.3); Monocytes % 7.3 % (3.3-12.3); Neutrophils % 54.3 % (41.7-73.7); Nucleated Red Blood Cells % 0.1 % (0-0); Platelets 234 thou/uL (152-406); RBC Red Blood Cell Count 5.55 M/uL (4.33-5.43); Red Cell Distribution Width 13.8 % (12.1-15.2)
[2024-07-21 11:33] LABS: PT Prothrombin Time 12.2 SECONDS (10-13.0); Protime INR 1.07
[2024-07-21] MEDS ORDERED: lisinopriL 20 MG TAB ONE (11:43)
[2024-07-21] MEDS ORDERED: FAMOTIDINE 20 MG/2 ML VIAL IV ONE (11:43)
[2024-07-21] MEDS ORDERED: ASPIRIN 81 MG CHEWABLE TABLET ONE (11:43)
--- NOTE | 2024-07-21 11:49 | RAD REPORT ---
EXAM: CT brain without contrast HISTORY: Dizziness COMPARISON: None TECHNIQUE: Multiple contiguous axial images were obtained and a CT of the brain without contrast.. Sagittal and coronal reconstruction performed. Automated exposure control, adjustment of the mA and/or kV according to patient size, and/or iterative reconstruction. Unless otherwise specified, incidental f indings do not require dedicated imaging follow-up FINDINGS: An intracranial bleed is not seen Ventricles are normal caliber No extra-axial fluid collection noted No significant hypodensity within the brain No fluid within the visualized sinuses or mastoids noted. IMPRESSION: No acute intracranial abnormality noted. If the patient continues to have symptoms to suggest an acute intracranial abnormality then MRI of th e brain would be recommended.
[2024-07-21 11:50] LABS: Anion Gap 12.8 mEq/L (5.0-15.0); Potassium 3.8 mEq/L (3.5-5.1); Troponin High Sensitivity 5.9 pg/mL (<58.9)
--- NOTE | 2024-07-21 11:50 | RAD REPORT ---
Procedure: Chest Single View HISTORY: Hypertension COMPARISON: 2023 FINDINGS: The lungs appear clear of acute infiltrate. No significant pleural effusion noted. The heart is probably borderline enlarged. IMPRESSION: No acute abnormality is displayed.
--- NOTE | 2024-07-21 11:52 | EKG ---
Test Date: 2024-07-21 Test Time: 10:55:18 Boring Machine Set Up Operator Jig: LUCAS MEASUREMENT RESULTS: Intervals: Rate: 55 RI: 140 QRSD: 104 QT: 486 QTc: 464 [place]: P: 15 RI: 140 QRS: 43 T: 20 INTERPRETIVE STATEMENTS: Sinus bradycardia Otherwise normal ECG Compared to ECG 08/10/2023 11:40:32 T-wave abnormality no longer present Possible ischemia no longer present Electronically Signed On 07-21-24 11:51:38 CDT by Samuel Almazan
[2024-07-21 11:55] LABS: Bilirubin Direct 0.2 mg/dL (0-0.2); Bilirubin Indirect, Calculated 0.8 mg/dL (0.2-0.8); Globulin 4.1 g/dL (2.3-3.5); Protein, Total 8.1 g/dL (6.4-8.2)
[2024-07-21 12:06] LABS: Specific Gravity 1.007 (1.005-1.030); Urine Bilirubin NEGATIVE (Negative); Urine Blood Negative (Negative); Urine Clarity Clear (Clear); Urine Color Colorless (Yellow); Urine Glucose NEGATIVE (Negative); Urine Ketones NEGATIVE (Negative); Urine Microscopic Reflex YN NO UMIC; Urine Nitrite NEGATIVE (Negative); Urine Protein NEGATIVE (Negative); Urine Urobilinogen Normal (Normal)
--- NOTE | 2024-07-21 12:41 | EDPHYS ---
Physician Documentation [facility] Name: Chandra Webb Age: 53 yrs Sex: Male : 1970 Arrival Date: 07/21/2024 Time: 10:44 Bed 8 Private MD: ED Physician Ulices Lackey HPI: 07/21 11:26 This 53 yrs old Male presents to ER via Wheelchair with complaints of Doesn't elliott Feel Right, disoriented. 11:26 The patient presents to the emergency department with nausea, that is mild. Onset: The elliott symptoms/episode began/occurred just prior to arrival. Possible causes: unknown. The symptoms are aggravated by nothing. The symptoms are alleviated by nothing. pain in jaw. The patient presents with generalized weakness. Context: occurred at work. Modifying factors: The symptoms are alleviated by nothing, the symptoms are aggravated by nothing. Severity of symptoms: At their worst the symptoms were moderate in the emergency department the symptoms have improved moderately. Historical: - Allergies: 10:55 No Known Allergies; aa5 - Home Meds: 10:55 Mounjaro subcutaneous [Active]; aa5 - PMHx: 10:55 Hypertensive disorder; (diet controlled/weight controlled); Borderline DM (diet aa5 controlled/weight controlled); - PSHx: 10:55 Left hip replacement; aa5 - Immunization history:: Adult Immunizations unknown. - Infectious Disease History:: Denies. - Social history:: Smoking status: Patient denies any tobacco usage or history of. - Family history:: not pertinent. ROS: 11:26 Constitutional: Negative for fever, chills, and weight loss, Eyes: Negative for injury, elliott pain, redness, and discharge, ENT: Negative for injury, pain, and discharge, Neck: Negative for injury, pain, and swelling, Cardiovascular: Negative for chest pain, palpitations, and edema, Respiratory: Negative for shortness of breath, cough, wheezing, and pleuritic chest pain, Abdomen/GI: Negative for abdominal pain, nausea, vomiting, diarrhea, and constipation, Back: Negative for injury and pain, : Negative for injury, bleeding, discharge, and swelling, MS/Extremity: Negative for injury and deformity, Skin: Negative for injury, rash, and discoloration, Psych: Negative for depression, anxiety, suicide ideation, homicidal ideation, and hallucinations, Allergy/Immunology: Negative for hives, rash, and allergies, Endocrine: Negative for neck swelling, polydipsia, polyuria, polyphagia, and marked weight changes, Hematologic/Lymphatic: Negative for swollen nodes, abnormal bleeding, and unusual bruising, 11:26 Neuro: Positive for dizziness, weakness, Exam: 11:26 Constitutional: This is a well developed, well nourished patient who is awake, alert, elliott and in no acute distress. Head/Face: Normocephalic, atraumatic. Eyes: Pupils equal round and reactive to light, extra-ocular motions intact. Lids and lashes normal. Conjunctiva and sclera are non-icteric and not injected. Cornea within normal limits. Periorbital areas with no swelling, redness, or edema. ENT: Nares patent. No nasal discharge, no septal abnormalities noted. Tympanic membranes are normal and external auditory canals are clear. Oropharynx with no redness, swelling, or masses, exudates, or evidence of obstruction, uvula midline. Mucous membranes moist. Neck: Trachea midline, no thyromegaly or masses palpated, and no cervical lymphadenopathy. Supple, full range of motion without nuchal rigidity, or vertebral point tenderness. No Meningismus. Chest/axilla: Normal chest wall appearance and motion. Nontender with no deformity. No lesions are appreciated. Cardiovascular: Regular rate and rhythm with a normal S1 and S2. No gallops, murmurs, or rubs. Normal PMI, no JVD. No pulse deficits. Respiratory: Lungs have equal breath sounds bilaterally, clear to auscultation and percussion. No rales, rhonchi or wheezes noted. No increased work of breathing, no retractions or nasal flaring. Abdomen/GI: Soft, non-tender, with normal bowel sounds. No distension or tympany. No guarding or rebound. No evidence of tenderness throughout. Back: No spinal tenderness. No costovertebral tenderness. Full range of motion. Male : Normal genitalia with no discharge or lesions. Skin: Warm, dry with normal turgor. Normal color with no rashes, no lesions, and no evidence of cellulitis. MS/ Extremity: Pulses equal, no cyanosis. Neurovascular intact. Full, normal range of motion., bilateral aka Neuro: Awake and alert, GCS 15, oriented to person, place, time, and situation. Cranial nerves II-XII grossly intact. Motor strength 5/5 in all extremities. Sensory grossly intact. Cerebellar exam normal. Normal gait. Psych: Awake, alert, with orientation to person, place and time. Behavior, mood, and affect are within normal limits. 11:26 ECG was reviewed by the Attending Physician. 11:26 Musculoskeletal/extremity: DVT Exam: No signs of deep vein thrombosis. no pain, no swelling, no tenderness, negative Homans' sign noted on exam, no appreciated bluish discoloration, no erythema, no increased warmth, 13:09 ECG was reviewed by the Attending Physician. [facility] Vital Signs: 10:50 BP 187 / 88; Pulse 57; Resp 20 S; Temp 98.1(O); Pulse Ox 99% on R/A; Weight 120.2 kg aa5 (R); Height 6 ft. 1 in. (R); Pain 0/10; 12:45 BP 166 / 84; Pulse 44; Resp 16 S; Pulse Ox 99% on R/A; aa5 13:45 BP 146 / 71; Pulse 45; Resp 16 S; Temp 97.5(TE); Pulse Ox 98% on R/A; aa5 10:50 Body Mass Index 34.96 (120.20 kg, 185.42 cm) aa5 10:50 Pain Scale: Adult aa5 MDM: 10:47 Medical Screening Exam initiated [facility] 11:29 Differential diagnosis: Nonspecific abd pain, gastritis, cholecystitis, pancreatitis, elliott appendicitis, diverticulitis, viral gastroenteritis, gastroenteritis. Differential Diagnosis altered mental status, sepsis, flu. Differential diagnosis: cardiac arrhythmia, CVA, generalized weakness, GI bleed, hypovolemia, idiopathic dizziness, near-syncope, sepsis, syncope, TIA. Data reviewed: vital signs, nurses notes, lab test result(s), EKG, radiologic studies, CT scan, plain films. Consideration of Admission/Observation Patient was admitted/placed on observation. Escalation of care including admission/observation considered. I considered the following discharge prescriptions or medication management in the emergency department Medications were administered in the Emergency Department. See MAR. Independent interpretation of the following test(s) in the Emergency Department EKG: See my EKG interpretation above. Test considered but Not performed: CT: no ct chest. Historians other than the Patient: Daughter/Son: daughter well informed. Care significantly affected by the following chronic conditions: Diabetes, Hypertension, Obesity. Counseling: I had a detailed discussion with the patient and/or guardian regarding the historical points, exam findings, and any diagnostic results supporting the discharge/admit diagnosis, lab results, radiology results, the need for further work-up and treatment in the hospital. 07/21 10:58 Order name: Basic Metabolic Panel; Complete Time: 12:18 [facility] 07/21 10:58 Order name: CBC with Diff; Complete Time: 11:46 [facility] 07/21 10:58 Order name: Troponin HS; Complete Time: 12:18 [facility] 07/21 11:00 Order name: PT-INR; Complete Time: 11:46 [facility] 07/21 11:00 Order name: BNP; Complete Time: 12:18 [facility] 07/21 11:00 Order name: Urinalysis w/ reflexes; Complete Time: 12:18 [facility] 07/21 11:00 Order name: LFT's; Complete Time: 12:18 [facility] 07/21 11:00 Order name: Lipase; Complete Time: 12:18 [facility] 07/21 11:09 Order name: Glucose, Ancillary Testing; Complete Time: 11:46 [facility] 07/21 13:39 Order name: Basic Metabolic Panel EDAL 07/21 13:39 Order name: Basic Metabolic Panel EDMS 07/21 13:39 Order name: Basic Metabolic Panel EDMS 07/21 13:39 Order name: CBC with Automated Diff EDMS 07/21 13:39 Order name: CBC with Automated Diff EDMS 07/21 13:39 Order name: CBC with Automated Diff EDMS / 13:39 Order name: Lipid Profile EDMS 07/21 13:39 Order name: Lipid Profile EDMS 07/21 13:39 Order name: Troponin High Sensitivity EDMS 07/21 13:39 Order name: Troponin High Sensitivity EDMS 07/21 13:39 Order name: Troponin High Sensitivity EDMS / 10:58 Order name: XRAY Chest (1 view); Complete Time: 12:18 [facility] 07/21 11:00 Order name: CT Head Brain wo Cont; Complete Time: 12:18 [facility] 07/21 11:24 Order name: EKG; Complete Time: 11:25 [facility] 07/21 10:58 Order name: Cardiac monitoring; Complete Time: 10:59 [facility] 07/21 10:58 Order name: EKG - Nurse/Tech; Complete Time: 10:59 07/21 10:58 Order name: IV Saline Lock; Complete Time: 10:07/21 10:58 Order name: Labs collected and sent; Complete Time: 10:07/21 10:58 Order name: O2 Per Protocol; Complete Time: 10:07/21 10:58 Order name: O2 Sat Monitoring; Complete Time: 10:07/21 12:16 Order name: EKG - Nurse/Tech; Complete Time: 13:32 ss EC:26 Rate is 55 beats/min. Rhythm is regular. QRS [place] is Normal. [place] interval is normal. QRS elliott interval is normal. QT interval is normal. No Q waves. T waves are Normal. ST Segment is depressed in leads II, III, aVF, V4, V5, V6. Clinical impression: NSR w/ Non-specific ST/T Changes and No evidence of ischemia. Interpreted by me. Reviewed by me. 13:09 Rate is 44 beats/min. Rhythm is regular. QRS [place] is Normal. [place] interval is normal. QRS elliott interval is normal. QT interval is normal. No Q waves. T waves are Normal. No ST changes noted. Clinical impression: Sinus bradycardia and No evidence of ischemia. Interpreted by me. Reviewed by me. Administered Medications: 11:15 Drug: NS 0.9% IV 1000 ml IV at 1000 ml once; to be given as a bolus over 60 minutes jl7 Route: IV; Rate: 1000 ml; Site: right antecubital; 12:15 Follow up: IV Status: Completed infusion; IV Intake: 1000ml aa5 11:48 Drug: Lisinopril PO 20 mg PO once Route: PO; aa5 12:50 Follow up: Response: No adverse reaction aa5 11:48 Drug: Aspirin PO Chewable Tablet 324 mg PO once; 81 mg tablets x 4 Route: PO; aa5 12:50 Follow up: Response: No adverse reaction aa5 11:48 Drug: Famotidine IVP 20 mg IVP once; dilute with 10 mL 0.9% NaCl; give over 2 minutes aa5 Route: IVP; Site: right antecubital; 12:00 Follow up: Response: No adverse reaction aa5 13:15 Drug: Enoxaparin Sub-Q 100 mg Sub-Q once Route: Sub-Q; Site: right lower abdomen; aa5 14:00 Follow up: Response: No adverse reaction aa5 13:15 Drug: Clopidogrel PO 75 mg PO once Route: PO; aa5 14:00 Follow up: Response: No adverse reaction aa5 16:48 Drug: Sotalol PO 80 mg PO once Route: PO; dd2 17:30 Follow up: Response: No adverse reaction aa5 Disposition Summary: 07/21/24 12:40 Hospitalization Ordered Notes: Hospitalization Status: Observation elliott Provider: Jack Cazares cha Condition: Stable elliott Problem: new elliott Symptoms: have improved elliott Bed/Room Type: Standard elliott Location: Telemetry/MedSurg (observation)(07/21/24 18:54) Room Assignment: 229(07/21/24 18:54) Diagnosis - Chest pain, unspecified elliott - Bradycardia, unspecified elliott - Syncope Near elliott - Essential (primary) hypertension elliott Forms: - Medication Reconciliation Form elliott - SBAR form elliott - Leadership Thank You Letter elliott Signatures: Dispatcher [employer] EDMS Ulices Lackey MD MD cha Calderon, Audri, RN RN aa5 Pooaj Ramirez, RN RN ss Juan José Alvarez, EDITOR TRADE JOURNAL-C EDITOR TR[employer] JOURNAL-Cla1 Haylie Tuttle, RN RN jl7 Valarie Guerrero, RN RN kb3 JOSÉ ANTONIO ENRIQUEZ, MIO RN dd2 Corrections: (The following items were deleted from the chart) 10:59 10:59 BASIC METABOLIC PANEL+C.LAB.BRZ ordered. EDMS EDMS 10:59 10:59 CBC+H.LAB.BRZ ordered. EDMS EDMS 10:59 10:59 Troponin High Sensitivity+C.LAB.BRZ ordered. EDMS EDMS 10:59 10:59 Chest Single View+RAD.RAD.BRZ ordered. EDMS EDMS 11:00 11:00 Head Brain Wo Cont+CT.RAD.BRZ ordered. EDMS EDMS 11:27 11:24 EKG - Nurse/Tech ordered. [facility] aa5 12:03 11:25 LIPID PROFILE+C.LAB.BRZ ordered. EDMS EDMS 12:36 12:36 EC Echo Doppler W/Color Flow+ECHO.RAD.BRZ ordered. EDMS EDMS 18:33 10:55 Home Meds: None; aa5 aa5 18:37 12:40 Telemetry/MedSurg (observation) elliott kb3 18:37 12:40 elliott kb3 18:54 18:37 [facility] ER [facility] kb3 ss 18:54 18:37 ERHOLD- kb3 ss
--- NOTE | 2024-07-21 12:41 | ER ---
Nurse's Notes [facility] Name: Chandra Webb Age: 53 yrs Sex: Male : 1970 Arrival Date: 07/21/2024 Time: 10:44 Bed 8 Private MD: Diagnosis: Chest pain, unspecified;Bradycardia, unspecified;Syncope Near;Essential (primary) hypertension Presentation: 07/21 10:50 Chief complaint: Patient states: sudden onset of "not feeling right while driving". Pt aa5 reports feeling dizzy, feeling lightheaded, dry mouth, feeling thirsty, tingling to barbara legs, and generalized weakness. 10:50 Coronavirus screen: At this time, the client does not indicate any symptoms associated aa5 with coronavirus-19. Ebola Screen: Patient denies travel to an Ebola-affected area in the 21 days before illness onset. Initial Sepsis Screen: Does the patient meet any 2 criteria? No. Patient's initial sepsis screen is negative. Does the patient have a suspected source of infection? No. Patient's initial sepsis screen is negative. Risk Assessment: Do you want to hurt yourself or someone else? Patient reports no desire to harm self or others. Onset of symptoms was July 21, 2024. 10:50 Acuity: ARIES 2 aa5 10:50 Method Of Arrival: Wheelchair aa5 Historical: - Allergies: 10:55 No Known Allergies; aa5 - Home Meds: 10:55 Mounjaro subcutaneous [Active]; aa5 - PMHx: 10:55 Hypertensive disorder; (diet controlled/weight controlled); Borderline DM (diet aa5 controlled/weight controlled); - PSHx: 10:55 Left hip replacement; aa5 - Immunization history:: Adult Immunizations unknown. - Infectious Disease History:: Denies. - Social history:: Smoking status: Patient denies any tobacco usage or history of. - Family history:: not pertinent. Screenin:55 [facility] ED Fall Risk Assessment (Adult) History of falling in the last 3 months, aa5 including since admission No falls in past 3 months (0 pts) Confusion or Disorientation No (0 pts) Intoxicated or Sedated No (0 pts) Impaired Gait No (0 pts) Mobility Assist Device Used No (0 pt) Altered Elimination No (0 pt) Score/Fall Risk Level 0 - 2 = Low Risk Oriented to surroundings, Maintained a safe environment, Educated pt \\T\\ family on fall prevention, incl call for assistance when getting out of bed, Assessed \\T\\ reinforced patient's understanding of fall precautions. Abuse screen: Denies threats or abuse. Nutritional screening: No deficits noted. Tuberculosis screening: No symptoms or risk factors identified. Assessment: 10:55 General: Appears uncomfortable, Behavior is calm, cooperative. Pain: Denies pain. aa5 Neuro: Level of Consciousness is awake, alert, obeys commands, Oriented to person, place, time, situation, Moves all extremities. Reports dizziness, generalized weakness . Cardiovascular: Reports lightheadedness, Heart tones S1 S2 present Rhythm is regular. Respiratory: Airway is patent Respiratory effort is even, unlabored, Respiratory pattern is regular, symmetrical. GI: Abdomen is round Bowel sounds present X 4 quads. Abd is soft and non tender X 4 quads. Patient currently denies nausea, vomiting. : No signs and/or symptoms were reported regarding the genitourinary system. EENT: Oral mucosa is moist. Reports dry mouth . Derm: Skin is pink, warm \\T\\ dry. Musculoskeletal: Range of motion: intact in all extremities. 11:48 Reassessment: Patient is alert, oriented x 3, equal unlabored respirations, skin aa5 warm/dry/pink. 11:48 Cardiovascular: Rhythm is sinus bradycardia. aa5 12:45 Reassessment: Patient is alert, oriented x 3, equal unlabored respirations, skin aa5 warm/dry/pink. Patient states feeling better. 12:45 Cardiovascular: Rhythm is sinus bradycardia. aa5 13:15 Reassessment: Patient is alert, oriented x 3, equal unlabored respirations, skin aa5 warm/dry/pink. Patient denies pain at this time. Patient states feeling better. 13:15 Cardiovascular: Rhythm is sinus bradycardia. aa5 13:45 Reassessment: Patient is alert, oriented x 3, equal unlabored respirations, skin aa5 warm/dry/pink. Cardiovascular: Rhythm is sinus bradycardia. Vital Signs: 10:50 BP 187 / 88; Pulse 57; Resp 20 S; Temp 98.1(O); Pulse Ox 99% on R/A; Weight 120.2 kg aa5 (R); Height 6 ft. 1 in. (R); Pain 0/10; 12:45 BP 166 / 84; Pulse 44; Resp 16 S; Pulse Ox 99% on R/A; aa5 13:45 BP 146 / 71; Pulse 45; Resp 16 S; Temp 97.5(TE); Pulse Ox 98% on R/A; aa5 10:50 Body Mass Index 34.96 (120.20 kg, 185.42 cm) aa5 10:50 Pain Scale: Adult aa5 Vitals: 16:32 Cardiac Rhythm Assessment Irregular Atrial fibrillation. dd2 ED Course: 10:45 Patient arrived in ED. im 10:47 Ulices Lackey MD is Attending Physician. elliott 10:48 Amanda Wilson, MIO is Primary Nurse. aa5 10:50 Arm band placed on Patient placed in an exam room, on a stretcher. aa5 10:50 Patient has correct armband on for positive identification. Bed in low position. Call aa5 light in reach. Side rails up X 1. Pulse ox on. NIBP on. 10:58 Triage completed. aa5 10:59 EKG done, by ED staff, reviewed by Ulices Lackey MD. aa5 11:00 Inserted saline lock: 20 gauge in right antecubital area, using aseptic technique. aa5 Flushed with 10 mL NS. 11:16 No provider procedures requiring assistance completed. aa5 11:18 CT Head Brain wo Cont In Process Unspecified. EDMS 11:33 XRAY Chest (1 view) In Process Unspecified. EDMS 12:37 Jack Cazares is Hospitalizing Provider. elliott 15:00 Patient admitted, IV remains in place. aa5 16:32 EKG done, by ED staff, reviewed by Juan José RODRIGUEZ. dd2 20:14 Provided Education on: ADMISSION INSTRUCTIONS. dd2 Administered Medications: 11:15 Drug: NS 0.9% IV 1000 ml IV at 1000 ml once; to be given as a bolus over 60 minutes jl7 Route: IV; Rate: 1000 ml; Site: right antecubital; 12:15 Follow up: IV Status: Completed infusion; IV Intake: 1000ml aa5 11:48 Drug: Lisinopril PO 20 mg PO once Route: PO; aa5 12:50 Follow up: Response: No adverse reaction aa5 11:48 Drug: Aspirin PO Chewable Tablet 324 mg PO once; 81 mg tablets x 4 Route: PO; aa5 12:50 Follow up: Response: No adverse reaction aa5 11:48 Drug: Famotidine IVP 20 mg IVP once; dilute with 10 mL 0.9% NaCl; give over 2 minutes aa5 Route: IVP; Site: right antecubital; 12:00 Follow up: Response: No adverse reaction aa5 13:15 Drug: Enoxaparin Sub-Q 100 mg Sub-Q once Route: Sub-Q; Site: right lower abdomen; aa5 14:00 Follow up: Response: No adverse reaction aa5 13:15 Drug: Clopidogrel PO 75 mg PO once Route: PO; aa5 14:00 Follow up: Response: No adverse reaction aa5 16:48 Drug: Sotalol PO 80 mg PO once Route: PO; dd2 17:30 Follow up: Response: No adverse reaction aa5 Medication: 11:11 VIS not applicable for this client. aa5 Intake: 12:15 IV: 1000ml; Total: 1000ml. aa5 Outcome: 12:40 Decision to Hospitalize by Provider. elliott 15:00 Admitted to ER Hold. Please see [facility] for further documentation. aa5 15:00 Condition: stable 15:00 Instructed on the need for admit, Demonstrated understanding of 20:14 Patient left the ED. dd2 Signatures: Dispatcher [employer] EDUlices Irby MD MD cha Calderon, Audri, RN RN aa5 Haylie Tuttle RN RN jl7 Lilli Clark DIANA, RN RN dd2 Corrections: (The following items were deleted from the chart) 18:33 10:55 Home Meds: None; aa5 aa5 18:35 12:45 Reassessment: Patient is alert, oriented x 3, equal unlabored respirations, skin aa5 warm/dry/pink. Patient states feeling better. aa5
[2024-07-21] MEDS ORDERED: ENOXAPARIN 100 MG/ML SYR SQ ONE (13:10)
[2024-07-21] MEDS ORDERED: CLOPIDOGREL 75 MG TABLET ONE (13:10)
[2024-07-21] MEDS ORDERED: MORPHINE 2 MG/ML SYR IV PRN (13:33)
--- NOTE | 2024-07-21 15:05 | P.HP ---
Certification for Inpatient Patient admitted to: Observation With expected LOS: <2 Midnights Patient will require the following post-hospital care: None Practitioner: I am a practitioner with admitting privileges, knowledge of patient current condition, hospital course, and medical plan of care. Services: Services provided to patient in accordance with Admission requirements found in Title 42 Section 412.3 of the Code of Federal Regulations Patient History Date of Service: 07/21/24 Reason for admission: Chest pain History of Present Illness: 53-year-old male with history of hypertension, hyperlipidemia, gout presents the emergency department with chief complaint of near syncope, chest tightness. He was driving and became lightheaded, weak, diaphoretic and had some chest tightness. The episode was severe for about 5 minutes but lasted for about an hour total. He also reports some jaw discomfort during this time. He denies any cardiac history or cardiac evaluation in the past, he was evaluated in the emergency department his initial high sensitive troponin was 5.9 other labs were unremarkable chest x-ray was negative for acute findings. ED provider wishes to admit under observation for ACS rule out. Of note his heart rate was in the 40s to 50s, previous admissions reviewed and he had sinus bradycardia during those admissions as well. He is currently asymptomatic with his heart rate and does not take any beta-blockers. EKG shows sinus bradycardia with no block Allergies No Known Allergies Allergy (Verified 08/18/23 10:28) Home Medications: Febuxostat [Uloric] 80 mg PO DAILY 08/10/23 Fluticasone [Flonase 50MCG Nasal [place]*] 2 sprays NS DAILY 08/10/23 Indomethacin 50 mg PO TIDP PRN 08/10/23 Lisinopril/Hydrochlorothiazide [Lisinopril-Hctz 10-12.5 mg Tab] 1 each PO DAILY 08/10/23 Rivaroxaban [Xarelto*] 10 mg PO DAILY 08/10/23 Rosuvastatin [Crestor*] 5 mg PO BEDTIME 08/10/23 Tirzepatide [Mounjaro] 2.5 mg SQ EVERY 7TH DAY 08/10/23 Hydrocodone 7.5/APAP 325 [[place] 7.5/325 mg*] 2 tab PO Q4H PRN tab 08/19/23 - Past Medical/Surgical History Diabetic: Yes -: Arthritis -: HTN -: DM -: Obesity -: OA -: Gout -: around 2017 cut out infection left foot -: foot surgery as teenager -: age 9 calcium deposit roomed left axillary Psychosocial/ Personal History: Lives at home with family - Family History Father -: Hypertension Mother -: Cancer - Social History Alcohol use: Yes CD- Drugs: No Caffeine use: Yes Place of Residence: Home Review of Systems Cardiovascular: Chest Pain, Light Headedness, Other (Diaphoresis, ) Physical Examination - Physical Exam General: Alert, In no apparent distress, Oriented x3 HEENT: Atraumatic, PERRLA Neck: Supple, 2+ carotid pulse no bruit, No LAD Respiratory: Clear to auscultation bilaterally, Normal air movement Cardiovascular: Regular rate/rhythm, Normal S1 S2 Gastrointestinal: Normal bowel sounds, No tenderness Musculoskeletal: No tenderness Integumentary: No rashes Neurological: Normal gait, Normal speech, Normal strength at 5/5 x4 extr, Normal affect - Studies Laboratory Data (last 24 hrs) 07/21/24 07/21/24 07/21/24 11:15 11:00 11:00 WBC Hgb Hct Plt Count PT 12.2 INR 1.07 Sodium Potassium BUN Creatinine Glucose Total Bilirubin 1.0 AST 14 L ALT 20 Alkaline Phosphatase 89 Triglycerides Cancelled Cholesterol Cancelled HDL Cholesterol Cancelled Cholesterol/HDL Ratio Cancelled Lipase 42 07/21/24 07/21/24 11:00 11:00 WBC 11.20 H Hgb 16.7 Hct 48.1 Plt Count 234 PT INR Sodium 138 Potassium 3.8 BUN 13 Creatinine 1.15 Glucose 93 Total Bilirubin AST ALT Alkaline Phosphatase Triglycerides Cholesterol HDL Cholesterol Cholesterol/HDL Ratio Lipase Assessment and Plan - Plan Assessment: Chest pain, lightheadedness rule out ACS Sinus bradycardia Hypertension Hyperlipidemia Gout Plan: Chest pain, lightheadedness rule out ACS Sinus bradycardia Trend troponin monitor on telemetry Cardiology consulted, echocardiogram ordered Avoid beta-blockers, does not appear the patient is on 1 Does have history of bradycardia during previous hospitalizations last year Hypertension Hyperlipidemia Gout Continue home indications when verified Avoid beta-blockers DVT PPX: Lovenox Code status: Full code Discharge Plan: Home Plan to discharge in: 24 Hours - Advance Directives Does patient have a Living Will: No Does patient have a Durable POA for Healthcare: No - Code Status/Comfort Care Code Status Assessed: Yes (Full code) Critical Care: No Time Spent Managing Pts Care (In Minutes): 64
[2024-07-21] MEDS ORDERED: SOTALOL HCL 80 MG TAB ONE (16:42)
[2024-07-21] MEDS ORDERED: HYDRALAZINE HCL 20 MG/ML VIAL IV PRN (17:38)
[2024-07-21] MEDS ORDERED: ACETAMINOPHEN 325 MG TABLET ONE (18:27)
[2024-07-21] MEDS: ACETAMINOPHEN 325 MG TABLET PO PRN (18:28)
[2024-07-21] MEDS: ATORVASTATIN 40 MG TAB PO SCH (21:02)
[2024-07-22] MEDS: SOTALOL HCL 80 MG TAB PO SCH ×2 (05:20→16:55)
[2024-07-22 07:31] LABS: Absolute Eosinophils 0.4 K/uL (0-0.5); Absolute Lymphocytes (CBC) 2.4 K/uL (0.7-4.9); Absolute Monocytes 0.6 K/uL (0.1-1.3); Absolute Neutrophil 5.1 K/uL (1.8-8.0); Basophils % 0.3 % (0-1.3); Eosinophils % 4.4 % (0-4.4); Hematocrit 47.4 % (39.6-49.0); Hemoglobin 16.5 g/dL (13.6-17.9); Lymphocytes % 28.3 % (15.3-44.8); MCH 29.8 pg (27.0-35.0); MCHC 34.8 g/dL (32.0-36.0); MCV 85.7 fL (80-100); MPV 8.6 fL (7.6-11.3); Monocytes % 6.8 % (3.3-12.3); Neutrophils % 60.2 % (41.7-73.7); Nucleated Red Blood Cells % 0.5 % (0-0); Platelets 220 thou/uL (152-406); RBC Red Blood Cell Count 5.53 M/uL (4.33-5.43); Red Cell Distribution Width 13.9 % (12.1-15.2)
[2024-07-22 07:50] LABS: Anion Gap 11.2 mEq/L (5.0-15.0); Potassium 4.2 mEq/L (3.5-5.1); Troponin High Sensitivity 9.1 pg/mL (<58.9)
[2024-07-22 08:55] VITALS: TEMP 97.8
[2024-07-22] MEDS ORDERED: ENOXAPARIN 40 MG/0.4 ML SQ SCH (09:00)
--- NOTE | 2024-07-22 10:27 | P.PN ---
Date of Service: 07/22/24 Subjective: Still in A-fib rate in the 80s No other acute events overnight Denies chest pain at this time ROS: 10 point ROS as noted above, otherwise negative Physical exam GEN: Alert, oriented, NAD HEENT: Normal conjunctiva, sclera anicteric CV: A-fib rate in the 80s, no edema Pulm: Nonlabored respirations on room air ABD: Soft, nontender, nondistended MSK: No joint tenderness Integumentary: No rashes Neuro: Normal speech, normal affect Vitals reviewed Assessment: Chest pain, lightheadedness rule out ACS Sinus bradycardia Hypertension Hyperlipidemia Gout Plan: Chest pain, lightheadedness rule out ACS New onset atrial fibrillation Alternating with sinus bradycardia Troponin negative x 3 Cardiology consulted, echocardiogram ordered Developed A-fib overnight, started on sotalol as recommended by cardiology Does have history of bradycardia during previous hospitalizations last year Cardiology considering RAY cardioversion Hypertension Hyperlipidemia Gout Continue home indications when verified Avoid beta-blockers DVT PPX: therapeutic Lovenox Code status: Full code Discharge Plan: Home Plan to discharge in: 24-48 hours Time Spent Managing Pts Care (In Minutes): 35
[2024-07-22] MEDS: ASPIRIN EC 81 MG TAB PO SCH (10:46)
[2024-07-22] MEDS: Enoxaparin 120 MG/0.8 ML SYR SQ SCH (10:47)
[2024-07-22] MEDS ORDERED: LIDOCAINE 1% 20 ML MDV ONE (14:47)
[2024-07-22] MEDS ORDERED: HEPA 1000U/500MLS 2,000 UNIT/1,000 ML BAG IV ONE (14:47)
[2024-07-22] MEDS ORDERED: HEPARIN 10,000 UNIT/10 ML VIAL IV ONE (14:47)
[2024-07-22] MEDS ORDERED: ATROPINE SULF 1 MG/10 ML SYR IV ONE (14:48)
[2024-07-22] MEDS ORDERED: HEPARIN 5000 UNIT/ML 1 ML VIAL ONE (14:48)
[2024-07-22] MEDS ORDERED: FENTANYL CITR 100 MCG/2 ML ONE (14:48)
[2024-07-22] MEDS ORDERED: CLOPIDOGREL 75 MG TABLET ONE (14:48)
[2024-07-22] MEDS ORDERED: MIDAZOLAM HCL 2 MG/2 ML INJ ONE (14:48)
[2024-07-22] MEDS ORDERED: ASPIRIN 325 MG TAB ONE (14:49)
[2024-07-22] MEDS ORDERED: TICAGRELOR 90 MG TABLET PO ONE (14:49)
[2024-07-22] MEDS: NA CHLORIDE 0.9% 500 ML ONE (14:54)
--- NOTE | 2024-07-22 14:54 | P.CNS ---
Date of Consult: 07/22/24 Chief Complaint: Chest pain History of Present Illness: Patient with no significant PMH presented with one episode of palpitation, dizzy spells, diaphoresis, also report some chest tightness, denies syncope, no SOB, no CHANEY. Allergies No Known Allergies Allergy (Verified 08/18/23 10:28) Home medications list reviewed: Yes Home Medications: Tirzepatide [Mounjaro] 2.5 mg SQ EVERY 7TH DAY 08/10/23 - Past Medical/Surgical History Diabetic: Yes -: Arthritis -: HTN -: DM -: Obesity -: OA -: Gout -: around 2016 cut out infection left foot -: foot surgery as teenager -: age 9 calcium deposit roomed left axillary -: Left hip replacement Psychosocial/ Personal History: Lives at home with family - Family History Father Medical History: Hypertension Mother Medical History: Cancer - Social History Smoking Status: Former smoker Alcohol use: Yes CD- Drugs: No Caffeine use: Yes Place of Residence: Home Review of Systems 10-point ROS is otherwise unremarkable Physical Examination Temp Pulse Resp BP Pulse Ox 97.8 F 76 16 134/79 96 07/22/24 12:00 07/22/24 12:00 07/22/24 12:00 07/22/24 12:00 07/22/24 12:00 General: Alert, In no apparent distress HEENT: Atraumatic, PERRLA, Mucous membr. moist/pink, EOMI, Sclerae nonicteric Neck: Supple, 2+ carotid pulse no bruit, No LAD, Without JVD or thyroid abnormality Respiratory: Clear to auscultation bilaterally, Normal air movement Cardiovascular: Regular rate/rhythm, Normal S1 S2 Gastrointestinal: Normal bowel sounds, No tenderness Musculoskeletal: No tenderness Integumentary: No rashes Neurological: Normal gait, Normal speech, Normal tone, Normal affect Lymphatics: No axilla or inguinal lymphadenopathy - Problems (1) Chest pain Current Visit: Yes Status: Acute Plan: troponin negative, echo is normal but patient continue to have chest pressure sensation. will do coronary angiogram ASA 81 mg daily Lipitor 40 mg daily (2) Atrial fibrillation Current Visit: Yes Status: Acute Plan: new diagnosis, patient converted to sinus rhythm after 2 doses of Sotalol he is sinus yi now lower Sotalol to 40 mg po BID His [id number] score is 1 so continue ASA 81 mg daily (3) HTN (hypertension) Current Visit: No Status: Acute Plan: continue to monitor
--- NOTE | 2024-07-22 16:24 | EKG ---
Test Date: 2024-07-22 Test Time: 12:39:17 Scale Agent: ARIANNA MEASUREMENT RESULTS: Intervals: Rate: 48 VA: 146 QRSD: 102 QT: 500 QTc: 446 [place]: P: 8 VA: 146 QRS: 46 T: 8 INTERPRETIVE STATEMENTS: Marked sinus bradycardia Nonspecific T wave abnormality Abnormal ECG Compared to ECG 07/21/2024 13:06:35 T-wave abnormality now present Electronically Signed On 07-22-24 16:24:19 CDT by aSmuel Almazan
--- NOTE | 2024-07-22 16:27 | EKG ---
Test Date: 2024-07-21 Test Time: 13:06:35 Helmet Binder: MARIO MEASUREMENT RESULTS: Intervals: Rate: 44 UT: 170 QRSD: 104 QT: 522 QTc: 446 [place]: P: 34 UT: 170 QRS: 35 T: 27 INTERPRETIVE STATEMENTS: Marked sinus bradycardia Abnormal ECG Compared to ECG 07/21/2024 10:55:18 No significant changes Electronically Signed On 07-22-24 16:26:17 CDT by Samuel Almazan
[2024-07-22 17:50] VITALS: BP 127/57; O2SAT 97
[2024-07-22] MEDS ORDERED: SOTALOL HCL 80 MG TAB PO SCH ×2 (18:00)
[2024-07-22 18:22] VITALS: BMI 34.9
--- NOTE | 2024-07-22 22:45 | OP ---
Date of Procedure: 07/22/2024 Surgeon: Samuel Almazan Procedure Performed: Selective angiogram. Indication For Procedure: Unstable angina. Complications: None. Estimated Blood Loss: Less than 50 cc. Access: Right radial, closed by TR band. Sedation Time: 20 minutes with 25 of fentanyl. Description Of Procedure: After risks, benefits, and alternatives were explained to the patient, the patient agreed to proceed with procedure and signed informed consent. The patient was brought back to the laboratory supervisor, prepped and draped in sterile fashion. Time-out was performed. Sedation was admini stered. Next, right radial access was obtained using ultrasound-guided micropuncture technique. Tig er 4 catheter was advanced over a J-wire to the aortic root. Selective angiogram was done using the same catheter. At the end of procedure, catheter was removed over a J-wire. Sheath was removed. TR band was applied. Hemostasis was achieved. The patient was moved back to recovery in stable condit ion. Findings: 1. Left main normal. 2. LAD normal. 3. Left circ normal. 4. RCA, large, dominant, normal. Assessment: Normal coronaries. Plan: To continue medical management. HARMON/MODL Voice ID: [id number] Report ID: [id number]
--- NOTE | 2024-07-23 07:24 | P.DS ---
Admission Date: 07/21/24 Discharge Date: 07/22/24 Disposition: ROUTINE DISCHARGE Discharge Condition: GOOD Reason for Admission: Chest pain Brief History of Present Illness: 53-year-old male with history of hypertension, hyperlipidemia, gout presents the emergency department with chief complaint of near syncope, chest tightness. He was driving and became lightheaded, weak, diaphoretic and had some chest tightness. The episode was severe for about 5 minutes but lasted for about an hour total. He also reports some jaw discomfort during this time. He denies any cardiac history or cardiac evaluation in the past, he was evaluate d in the emergency department his initial high sensitive troponin was 5.9 other labs were unremarkable chest x-ray was negative for acute findings. ED provider wishes to admit under observation for ACS rule out. Of note his heart rate was in the 40s to 50s, previous admissions reviewed and he had sinus bradycardia during those admissions as well. He is currently asymptomatic with his heart rate and does not take any beta-blockers. EKG shows sinus bradycardia with no block Hospital Course: Assessment: Chest pain, lightheadedness rule out ACS Sinus bradycardia New onset paroxysmal afib Hypertension Hyperlipidemia Gout Patient was admitted to the hospital for chest tightness, lightheadedness. While he was in the ER he was seen by cardiology and had converted to atrial fibrillation, prior to this he was sinus bradycardia in the 40s to 50s. Patient was started on sotalol inpatient initially at 80 mg, after 2 doses he converted back to sinus bradycardia. Cardiology recommends reducing dose of sotalol to 40 mg twice daily and continuing this outpatient. [id number] score was 1 and he was instructed to take daily aspirin 81 mg for now in addition to the sotalol. Coronary angiogram was performed as well which did not show any significant coronary artery disease. Echocardiogram showed normal LVEF. Prescription for sotalol 40 mg twice daily to be sent to the pharmacy, other home medication should be continued as previously prescribed. Follow-up with primary care doctor and cardiology in the next 1 week Monitor heart rate at home, do not take sotalol if heart rate is less than 45 per cardiology recommendations Vital Signs/Physical Exam: Temp Pulse Resp BP Pulse Ox 97.8 F 46 L 19 127/57 L 96 07/22/24 12:00 07/22/24 17:45 07/22/24 17:45 07/22/24 17:45 07/22/24 12:00 General: Alert, In no apparent distress, Oriented x3 HEENT: Atraumatic, PERRLA Neck: Supple, JVD not distended Respiratory: Clear to auscultation bilaterally, Normal air movement Cardiovascular: Regular rate/rhythm, Normal S1 S2 Gastrointestinal: Normal bowel sounds, No tenderness Musculoskeletal: No tenderness Integumentary: No rashes Neurological: Normal speech, Normal affect Laboratory Data at Discharge: WBC 8.50 thou/uL (4.3-10.9) 07/22/24 07:19 Hgb 16.5 g/dL (13.6-17.9) 07/22/24 07:19 Hct 47.4 % (39.6-49.0) 07/22/24 07:19 Plt Count 220 thou/uL (152-406) 07/22/24 07:19 PT 12.2 SECONDS (10-13.0) 07/21/24 11:15 INR 1.07 07/21/24 11:15 Sodium 140 mEq/L (136-145) 07/22/24 07:19 Potassium 4.2 mEq/L (3.5-5.1) 07/22/24 07:19 BUN 14 mg/dL (7-18) 07/22/24 07:19 Creatinine 1.06 mg/dL (0.70-1.30) 07/22/24 07:19 Glucose 123 mg/dL (74-106) H 07/22/24 07:19 Total Bilirubin 1.0 mg/dL (0.2-1.0) 07/21/24 11:00 AST 14 U/L (15-37) L 07/21/24 11:00 ALT 20 U/L (16-61) 07/21/24 11:00 Alkaline Phosphatase 89 U/L (45-117) 07/21/24 11:00 Triglycerides 113 mg/dL (<150) 07/22/24 07:19 Cholesterol 207 mg/dL (<200) H 07/22/24 07:19 HDL Cholesterol 46 mg/dL (40-60) 07/22/24 07:19 Cholesterol/HDL Ratio 4.50 07/22/24 07:19 Lipase 42 U/L (13-75) 07/21/24 11:00 Home Medications: Tirzepatide [Mounjaro] 2.5 mg SQ EVERY 7TH DAY 08/10/23 Sotalol HCl [Sotalol AF] 40 mg PO BID #60 tab 07/22/24 New Medications: Sotalol HCl [Sotalol AF] 40 mg PO BID #60 tab Physician Discharge Instructions: Patient was admitted to the hospital for chest tightness, lightheadedness. While he was in the ER he was seen by cardiology and had converted to atrial fibrillation, prior to this he was sinus bradycardia in the 40s to 50s. Patient was started on sotalol inpatient initially at 80 mg, after 2 doses he converted back to sinus bradycardia. Cardiology recommends reducing dose of sotalol to 40 mg twice daily and continuing this outpatient. [id number] score was 1 and he was instructed to take daily aspirin 81 mg for now in addition to the sotalol. Coronary angiogram was performed as well which did not show any significant coronary artery disease. Echocardiogram showed normal LVEF. Prescription for sotalol 40 mg twice daily to be sent to the pharmacy, other home medication should be continued as previously prescribed. Follow-up with primary care doctor and cardiology in the next 1 week Monitor heart rate at home, do not take sotalol if heart rate is less than 45 per cardiology recommendations Diet: Regular Activity: Ad duran Followup: Samuel Almazan MD [ACTIVE - CAN ADMIT] - 1 Week Eleni Urena [Primary Care Provider] - 1 Week Time spent managing pt's care (in minutes): 49
--- NOTE | 2024-07-25 07:20 | ECHO ---
HEIGHT: 6 ft 1 in WEIGHT: 265 lb 0 oz DATE OF STUDY: 07/22/[address]: Ulices Lackey MD 2-DIMENSIONAL: YES M.MODE: YES DOPPLER: YES COLOR FLOW: YES TDS: PORTABLE: YES DEFINITY: BUBBLE STUDY: DIAGNOSIS: CHEST PAIN CARDIAC HISTORY: CATHERIZATION: NO SURGERY: NO PROSTHETIC VALVE: NO PACEMAKER: NO MEASUREMENTS (cm) DIASTOLIC (NORMALS) SYSTOLIC (NORMALS) IVSd 1.1 (0.6-1.2) LA Diam 4.5 (1.9-4.0) LVEF 60-65% LVIDd 5.5 (3.5-5.7) LVIDs 3.7 (2.0-3.5) %FS 32% LVPWd 1.2 (0.6-1.2) Ao Diam 3.3 (2.0-3.7) 2 DIMENSIONAL ASSESSMENT: RIGHT ATRIUM: NORMAL LEFT ATRIUM: MILDLY DILATED RIGHT VENTRICLE: NORMAL LEFT VENTRICLE: NORMAL TRICUSPID VALVE: TRACE TRICUSPID REGURGITATION MITRAL VALVE: NORMAL PULMONIC VALVE: TRACE AORTIC REGURGITATION AORTIC VALVE: NORMAL PERICARDIAL EFFUSION: NONE AORTIC ROOT: NORMAL LEFT VENTRICULAR WALL MOTION: NORMAL DOPPLER/COLOR FLOW: NORMAL COMMENTS: 1. NORMAL LEFT VENTRICULAR SYSTOLIC FUNCTION, EJECTION FRACTION 60-65%, NORMAL WALL MOTION 2. NORMAL DIASTOLIC FUNCTION TECHNOLOGIST: WILLIAM MARQUEZ
== END 2024-07-22 19:20 | disposition home or self-care (01) ==
LOC: ER 10:44 → ERHOLD 13:33 → 2ND 19:47
PROVIDERS: ADMIT Internal Medicine; ATTEND Internal Medicine
PROC: B2111ZZ Fluoroscopy of Multiple Coronary Arteries using Low Osmolar Contrast (ICD-10-PCS; principal; 2024-07-22)
DX: R07.9 Chest pain, unspecified (principal); R00.1 Bradycardia, unspecified; I48.0 Paroxysmal atrial fibrillation; R55 Syncope and collapse; R42 Dizziness and giddiness; R61 Generalized hyperhidrosis; I10 Essential (primary) hypertension; E78.5 Hyperlipidemia, unspecified; E11.9 Type 2 diabetes mellitus without complications; M10.9 Gout, unspecified; M19.90 Unspecified osteoarthritis, unspecified site; E66.9 Obesity, unspecified; Z68.35 Body mass index [BMI] 35.0-35.9, adult; Z87.891 Personal history of nicotine dependence; Z79.85 Long-term (current) use of injectable non-insulin antidiabetic drugs; Z79.899 Other long term (current) drug therapy; Z96.642 Presence of left artificial hip joint; Z82.49 Family history of ischemic heart disease and other diseases of the circulatory system; Z80.9 Family history of malignant neoplasm, unspecified
CPT/HCPCS: 96361; 93005 ×4; 93306; 85025 ×2; 80048 ×2; 36415; 85610; 80061; 82947; 80076; 81003; 84484 ×4; 83690; 83880; 70450; 71045; 93454; 76937; 96372; 96374; 99285; C1893; Q9966; J1644; J1650 ×2; J2003; J3010; G0378 ×5; J7040; J7030; 99152; J0461; J2250